=== PATIENT | female | born 1960 | race Caucasian/White ===

== ENCOUNTER 2017-04-03 17:56 | Inpatient (IN) ==
--- NOTE | 2017-04-03 18:08 | Emergency Department Note ---
Disposition Clinical Impression: Acute exacerbation of chronic obstructive airways disease Disposition: Admitted As Inpatient Condition: Fair SOB HPI - General Chief Complaint: ED Shortness of Breath/Dyspnea Stated Complaint: Shortness of breath Time Seen by Provider: 04/03/17 18:06 Source: patient, EMS Mode of arrival: EMS Limitations: other Nursing Notes Reviewed: Yes Vital Signs Reviewed: Yes - History of Present Illness Patient presents to the ED via EMS complaining of shortness of breath, cough, nausea, vomiting and weakness. States she has been feeling bad for 1 week. She has a chronic cough due to her COPD that is worsened recently and is now productive of green sputum in the past 2 days. She denies any abdominal pain but has had nausea with several episodes of dry heaves today. She also reports several episodes of diarrhea over the past week. Denies any blood in her vomit or stools. Denies any chest pain She reports subjective fever and chills as well as body aches. She has had rhinorrhea but denies any nasal congestion, sneezing or sore throat. She wears home O2 at 2 L at night for the past several years from her COPD. She has not recently been on antibiotics or steroids but does use inhalers at home. She normally smokes a few packs per day but states she has not smoked in the past week since becoming ill. In addition to her prescription medicine she is taking some [id number] Tussin without relief. Denies any recent travel or sick contacts. - Related Data Home Medications Medication Instructions Recorded Confirmed CeleXA 12/27/14 12/27/14 Daliresp 12/27/14 12/27/14 Flonase 12/27/14 12/27/14 Gabapentin 12/27/14 12/27/14 Loratadine 12/27/14 12/27/14 Proair Hfa 12/27/14 12/27/14 Singulair 12/27/14 12/27/14 Symbicort 12/27/14 12/27/14 Verapamil 12/27/14 12/27/14 Previous Rx's Medication Instructions Recorded Levofloxacin [Levaquin] 750 mg PO DAILY #7 tablet 12/27/14 Promethazine/Dextromethorphan 5 ml PO Q4H #480 syrup 12/27/14 [Promethazine-Dm Syrup] predniSONE [PredniSONE] 40 mg PO DAILY 5 Days tablet 12/27/14 Allergies Allergy/AdvReac Type Severity Reaction Status Date / Time Penicillins [PCN] Allergy Hives Verified 12/27/14 12:14 tiotropium Allergy Swelling Verified 12/27/14 12:14 [From Spiriva with of HandiHaler] Lip/Tongue/Throat bupropion [From Wellbutrin] AdvReac Fever Verified 12/27/14 12:14 Varenicline [From Chantix] AdvReac Fever Verified 12/27/14 12:14 Constitutional: Reports: fever, chills. Denies: weakness, weight change Eyes: Denies: eye pain, eye discharge, vision change ENT ED: Denies: ear pain, throat pain, dental pain, hearing loss, epistaxis, congestion, dysphagia Cardiovascular: Denies: chest pain, palpitations, dyspnea on exertion, edema, syncope Respiratory: Reports: cough, dyspnea, sputum production. Denies: wheezes, hemoptysis, stridor Gastrointestinal: Reports: nausea, vomiting, diarrhea. Denies: abdominal pain, constipation, hematemesis, melena, hematochezia Genitourinary: Denies: dysuria, frequency, hematuria, discharge Musculoskeletal: Reports: myalgia (generalized body aches). Denies: back pain, neck pain, arthralgia Integumentary: Denies: rash, abrasion, lesions Neurological: Denies: headache, weakness, numbness, paresthesias, confusion, abnormal gait, vertigo Psychiatric: Denies: anxiety, depression, suicidal thoughts, homicidal thoughts , auditory hallucinations, visual hallucinations Endocrine: Denies: fatigue Hematological/Lymphatic: Denies: easy bleeding, easy bruising Allergic/Immunologic: Denies: facial swelling, urticaria Past Medical History - Past Medical History Medical history: Reports: COPD, hyperlipidemia, hypertension Surgical history: Reports: appendectomy Psychiatric history: Reports: anxiety, depression, panic disorder WOOD PLANER history: Reports: no WOOD PLANER history, bilateral tubal ligation - Social History Smoking Status: Current every day smoker Smokeless Tobacco Status: No Alcohol use: Reports: none Drug use: Reports: none Physical Exam - General Limitations: other General appearance: alert, in no apparent distress, other (Looks much older than stated age) - Head Head exam: atraumatic, normocephalic, normal inspection - Eye Eye exam: Present: normal appearance, PERRL, EOMI - ENT ENT exam: normal exam, normal oropharynx, mucous membranes dry, TM's normal bilaterally, normal external ear exam - Expanded ENT Exam Nose exam: negative: rhinorrhea, sinus tenderness Mouth exam: Present: normal external inspection Throat exam: Present: normal inspection. Absent: tonsillar erythema, tonsillomegaly - Neck Neck exam: Present: normal inspection, full ROM, trachea midline. Absent: lymphadenopathy - Chest Chest inspection: Present: normal inspection, symmetric chest wall rise - Respiratory Respiratory exam: Absent: respiratory distress, accessory muscle use - Expanded Respiratory Exam Location: wheezes: Left, Right, Upper, Lower (scattered, greater on R) - Cardiovascular Cardiovascular exam: Present: normal rhythm, tachycardia, normal heart sounds - Abdominal Exam Abdominal exam: Present: soft, Non-Tender, normal bowel sounds. Absent: tenderness, distention, guarding, rebound, rigidity - Extremities Exam Extremities exam: Present: normal inspection, full ROM. Absent: tenderness, pedal edema - Back Exam Back exam: Present: normal inspection, full ROM. Absent: tenderness - Neurological Exam Neurological exam: Present: alert, oriented X3 - Psychiatric Psychiatric exam: Present: normal affect, normal mood - Skin Skin exam: Present: warm, dry, intact, normal color Course Course Narrative: Patient presents to the ED with 1 week of flulike symptoms including fever, chills, myalgias, nausea and vomiting as well as shortness of breath or productive cough. She has a history of COPD concerning for COPD exacerbation with possibility of pneumonia in addition to the possibility of influenza. She has scattered wheezing on exam and is mildly tachycardic but is not in any acute distress. She is afebrile. She will be given a DuoNeb and steroids. Will obtain chest x-ray and lab work including flu swab for further evaluation. - Reevaluation(s) Reevaluation #1: Flu test is negative. Chest x-ray shows emphysema with some overlying patchy airspace disease concerning for pneumonia. Laboratory studies show leukocytosis with a left shift which may be due to pneumonia versus her GI process causing diarrhea. Lactic acid however is normal. Patient states she has been wearing oxygen continuously for the past week while she has been feeling ill. Patient has been satting in the mid 90s on 3 L since arrival. Will check a room air saturation and walking pulse ox is I suspect she will likely desaturate. Patient reports feeling better after neb treatment and wheezing has diminished but is still present on repeat exam. Will given additional nebulizer treatment and start antibiotics for the possible pneumonia. Discussed with patient my recommendation for admission for continued antibiotics and treatment and she is agreeable. Time: 19:41 Reevaluation #2: Patient desatted to 86% on room air just changing clothes in the bed. She was placed back on oxygen. Time: 19:54 Reevaluation #3: Spoke to the hospitalist pharmacy operations coordinator, Dr. Najera, who has agreed to admit the patient. We will draw blood cultures before starting antibiotics. We will give Imodium for her diarrhea. Patient and family updated. Time: 20:06 Vital Signs Temperature 97.6 F 04/03/17 17:57 Pulse Rate 109 04/03/17 17:57 Respiratory Rate 16 04/03/17 17:57 Blood Pressure 102/85 04/03/17 17:57 O2 Sat by Pulse Oximetry 92 04/03/17 17:57 Temperature 97.6 F 04/03/17 17:57 Pulse Rate 101 04/03/17 20:25 Respiratory Rate 18 04/03/17 20:25 Blood Pressure 121/85 04/03/17 20:25 O2 Sat by Pulse Oximetry 94 04/03/17 20:25 Oxygen Delivery Oxygen Delivery Nasal Cannula Shortness of Breath/Dyspnea - Differential Diagnosis Likely: acute exacerbation of chronic obstructive airways disease, pneumonia - Medical Records Medical records reviewed: Yes I reviewed the patient's medical records. - Lab Data Lab results reviewed: Yes I reviewed the patient's lab results. Result diagrams: 04/03/17 18:35 04/03/17 18:35 Lab Results 04/03/17 04/03/17 04/03/17 Range/Units 18:35 18:35 18:35 WBC 17.4 H (4.3-11.1) K/mcL RBC 4.85 (3.82-4.97) M/mcL Hgb 15.0 (11.5-15.4) g/dL Hct 46.3 H (35.3-44.9) % MCV 95.5 (83.0-100.0) fL MCH 30.9 (28.0-33.3) pg MCHC 32.4 (31.6-35.5) g/dL RDW 12.7 (11.5-14.5) % Plt Count 375 (140-400) K/mcL MPV 9.2 L (9.4-12.4) fL Immature Gran % 4.1 H (0-4) % Seg Neutrophils % 73.4 % Lymphocytes % 12.1 % Monocytes % 9.3 % Eosinophils % 0.4 % Basophils % 0.7 % Neutrophils # 12.8 H (1.6-8.9) K/mcL Lymphocytes # 2.1 (0.6-4.6) K/mcL Monocytes # 1.6 H (0.0-1.3) K/mcL Eosinophils # 0.1 (0.0-0.6) K/mcL Basophils # 0.1 (0.0-0.2) K/mcL Toxic Granulation Present A (Not Present) Dohle Bodies Present A (Not Present) Platelet Estimate Normal (Normal) Polychromasia 1+ A (Not Present) Sodium 142 (136-145) mEq/L Potassium 3.8 (3.5-4.5) mEq/L Chloride 91 L (98-109) mEq/L Carbon Dioxide 38 H (19-29) mEq/L BUN 21 H (7-20) mg/dL Creatinine 0.68 (0.57-1.11) mg/dL Est GFR ( Amer) > 60 (> 60) Est GFR (Non-Af Amer) > 60 (> 60) BUN/Creatinine Ratio 31 H (6-26) Glucose 101 H (70-99) mg/dL Calculated Osmolality 297 (280-300) Lactic Acid 1.1 (0.5-2.2) mmol/L Calcium 9.3 (8.6-10.8) mg/dL 04/03/17 Range/Units 20:05 WBC (4.3-11.1) K/mcL RBC (3.82-4.97) M/mcL Hgb (11.5-15.4) g/dL Hct (35.3-44.9) % MCV (83.0-100.0) fL MCH (28.0-33.3) pg MCHC (31.6-35.5) g/dL RDW (11.5-14.5) % Plt Count (140-400) K/mcL MPV (9.4-12.4) fL Immature Gran % (0-4) % Seg Neutrophils % % Lymphocytes % % Monocytes % % Eosinophils % % Basophils % % Neutrophils # (1.6-8.9) K/mcL Lymphocytes # (0.6-4.6) K/mcL Monocytes # (0.0-1.3) K/mcL Eosinophils # (0.0-0.6) K/mcL Basophils # (0.0-0.2) K/mcL Toxic Granulation (Not Present) Dohle Bodies (Not Present) Platelet Estimate (Normal) Polychromasia (Not Present) Sodium (136-145) mEq/L Potassium (3.5-4.5) mEq/L Chloride (98-109) mEq/L Carbon Dioxide (19-29) mEq/L BUN (7-20) mg/dL Creatinine (0.57-1.11) mg/dL Est GFR ( Amer) (> 60) Est GFR (Non-Af Amer) (> 60) BUN/Creatinine Ratio (6-26) Glucose (70-99) mg/dL Calculated Osmolality (280-300) Lactic Acid 1.1 (0.5-2.2) mmol/L Calcium (8.6-10.8) mg/dL - Radiology Data Radiology results reviewed: Yes I reviewed the patient's radiology results.
[2017-04-03] MEDS ORDERED: methylPREDNISolone 125 MG/2 ML VIAL IVP ONE (18:21)
[2017-04-03] MEDS ORDERED: 0.9 % Sodium Chloride 1,000 ML IVC ONE (18:21)
[2017-04-03] MEDS ORDERED: Ipratropium/Albuterol Neb 3 ML IH ONE ×2 (18:21→19:38)
[2017-04-03 18:41] LABS: Basophils # 0.1 K/mcL (0.0-0.2); Basophils % 0.7 %; Eosinophils # 0.1 K/mcL (0.0-0.6); Eosinophils % 0.4 %; Hematocrit 46.3 % (35.3-44.9); Immature Granulocytes % 4.1 % (0-4); Lymphocytes # 2.1 K/mcL (0.6-4.6); Lymphocytes % 12.1 %; Mean Corpuscular HGB Conc 32.4 g/dL (31.6-35.5); Mean Corpuscular Hemoglobin 30.9 pg (28.0-33.3); Mean Corpuscular Volume 95.5 fL (83.0-100.0); Mean Platelet Volume 9.2 fL (9.4-12.4); Monocytes # 1.6 K/mcL (0.0-1.3); Monocytes % 9.3 %; Neutrophils # 12.8 K/mcL (1.6-8.9); Platelet Count 375 K/mcL (140-400); Red Blood Count 4.85 M/mcL (3.82-4.97); Red Cell Distribution Width 12.7 % (11.5-14.5); Segmented Neutrophils % 73.4 %
[2017-04-03 18:58] LABS: BUN/Creatinine Ratio 31 (6-26); Blood Urea Nitrogen 21 mg/dL (7-20); Calcium 9.3 mg/dL (8.6-10.8); Carbon Dioxide 38 mEq/L (19-29); Chloride 91 mEq/L (98-109); Glucose 101 mg/dL (70-99); Osmolality,Calculated 297 (280-300); Potassium 3.8 mEq/L (3.5-4.5); Sodium 142 mEq/L (136-145); eGFR For African Americans > 60 (> 60); eGFR For Non-African Americans > 60 (> 60)
[2017-04-03 19:12] LABS: Dohle Bodies Present (Not Present); Toxic Granulation Present (Not Present)
[2017-04-03 19:19] LABS: Platelet Estimate Normal (Normal); Polychromasia 1+ (Not Present)
[2017-04-03] MEDS ORDERED: Levofloxacin 750 MG/150 ML 750 MG/150 ML BAG IVPB ONE (19:37)
[2017-04-03] MEDS ORDERED: Naloxone 0.4 MG/ML INJ IVP PRN ×2 (20:07→21:20)
[2017-04-03] MEDS ORDERED: 0.9 % Sodium Chloride 1,000 ML IVC SCH (20:15)
[2017-04-04] MEDS: Ipratropium/Albuterol Neb 3 ML IH SCH ×4 (00:01→14:01)
[2017-04-04] MEDS: Budesonide/Formoterol 160/4.5 MDI IH SCH ×3 (00:01→21:34)
[2017-04-04] MEDS: 0.9 % Sodium Chloride 1,000 ML IVC SCH ×2 (04:31→12:22)
[2017-04-04] MEDS: Gabapentin 300 MG CAPSULE PO SCH ×3 (10:25→21:12)
[2017-04-04] MEDS: Verapamil ER (24 HR) 240 MG TABLET.ER PO SCH (10:26)
--- NOTE | 2017-04-04 12:12 | Internal Med History&Physical ---
Date of Encounter: 04/04/17 Time of Encounter: 11:30 Assessment and Plan (1) Pneumonia Current visit: Yes Status: Acute She has been started on Levaquin. Will add lactobacillus and order chest CT to further evaluate. Qualifiers: Pneumonia type: due to unspecified organism Laterality: bilateral Lung location: unspecified part of lung Qualified Code(s): J18.9 - Pneumonia, unspecified organism (2) Acute exacerbation of chronic obstructive airways disease Current visit: Yes Status: Acute Continue Symbicort and Singulair with prn albuterol nebs. (3) Weight loss Current visit: Yes Status: Acute TSH was normal in 2016. Will recheck in a.m. and order CT of chest abdomen and pelvis. (4) Hypertension Current visit: Yes Status: Chronic Continue verapamil Qualifiers: Hypertension type: essential hypertension Qualified Code(s): I10 - Essential (primary) hypertension Internal Medicine - H&P: HPI Chief complaint: Dyspnea and diarrhea Admitted From: Emergency Dept Plans for Post Hospital Care: Home History of present illness: Ms. Kang is a 56 year old female who came to emergency room stating she had one week history of cough with increased dyspnea and diarrhea. She reports having fevers and chills at home. She denies any blood in the diarrhea. Her family reported she appeared delirious so called the squad. She was evaluated emergency room and found to have bilateral pneumonia on chest x-ray. She was admitted to [facility] floor for ongoing care needs. Her respiratory history is significant for having smoked since age 14 up to 3 packs per day. She states she has not smoked in a week. She had PFTs approximately 2009 and was told she had COPD/emphysema. She states she was diagnosed with alpha-1 antitrypsin deficiency. She wears oxygen at bedtime and when necessary during the daytime. She has not been evaluated for EDISON. Past Med Surg Social Fam HX - Past Medical History Medical history: COPD, fibromyalgia, hyperlipidemia, hypertension Psychiatric history: anxiety, depression, panic disorder - Past Surgical History Surgical History: appendectomy - Social History Smoking Status: Current every day smoker Smokeless Tobacco Status: No Alcohol use: none Drug use: none - Family History Mother Living Status: Age at : 40 Cause of : complications to diabetes Hx Family Endocrine Disorder: Yes (diabetes) Internal Medicine - H&P: Meds Aclidinium [place] [Tudorza Pressair] 400 mcg IH BID 04/04/17 [History] Albuterol Sulfate [Proair Respiclick] 90 mcg IH Q4HR PRN 04/04/17 [History] Albuterol Sulfate [Ventolin Hfa] 18 gm IH Q4HR PRN 04/04/17 [History] Alprazolam [Xanax] 0.5 mg PO TID PRN 04/04/17 [History] Budesonide/Formoterol 160/4.5 [Symbicort 160/4.5] 2 puff IH BIDR 04/04/17 [ History] Citalopram Hydrobromide [Citalopram HBr] 40 mg PO QDPC 04/04/17 [History] Gabapentin [Neurontin] 600 mg PO TID 04/04/17 [History] Montelukast [Singulair] 10 mg PO QDPC 04/04/17 [History] Roflumilast [Daliresp] 500 mcg PO QDPC 04/04/17 [History] Verapamil ER (24 HR) [Calan SR] 240 mg PO DAILY 04/04/17 [History] 3 Allergy/AdvReac Type Severity Reaction Status Date / Time Penicillins [PCN] Allergy Hives Verified 12/27/14 12:14 tiotropium Allergy Swelling Verified 12/27/14 12:14 [From Spiriva with of HandiHaler] Lip/Tongue/Throat bupropion [From Wellbutrin] AdvReac Fever Verified 12/27/14 12:14 Varenicline [From Chantix] AdvReac Fever Verified 12/27/14 12:14 All Systems PM: A 10-system review of systems was performed and is negative for pertinent findings except as documented above in the HPI. Review of systems: Gen.: Her weight has decreased from 72.575 kg June 2014 hospitalization to 61.235 kg now. Cardiovascular: She has history of hypertension but denies RI heart failure angina DVT or pulmonary embolus. She thinks she had an EST approximately 2004 which was negative. Respiratory: As per history of present illness GI: She denies disorders with her liver gallbladder or exocrine pancreas : No history of hematuria dysuria or kidney stones Neurologic: No history of large distribution strokes or seizures Endocrine: She has hyperlipidemia but no known diabetes or thyroid disease Hematology/oncology: She denies blood disorders cancers or anemia Psychiatric: She has anxiety and depression but denies other mental health issues Muscle skeletal: She denies arthritis or gout or osteoporosis. She has been diagnosed with fibromyalgia. - Constitutional Vitals: Temp Pulse Resp BP Pulse Ox 98.4 F 97 18 122/73 94 04/04/17 06:35 04/04/17 10:00 04/04/17 10:03 04/04/17 06:35 04/04/17 10:03 Exam: Gen.: She is a well-developed well-nourished female lying in bed who appears in no acute distress HEENT: Head is atraumatic and normocephalic. Eyes: EOMI. There is no scleral icterus. Mouth: Mucosa is moist. Neck: Supple and nontender. There is no thyromegaly or adenopathy noted. Heart: Regular without murmurs gallops or ectopics Lungs: She has prolonged expiratory phase with mild wheezing. No inspiratory crackles are heard. Abdomen: Bowel sounds are present but diminished. There is mild tenderness to palpation in the abdomen. No masses or guarding are noted. Extremities: There is no cyanosis edema or clubbing noted. Dorsalis pedis and posterior tibial pulses are trace to 1+ palpable bilaterally. Neurologic: Mental status: She is talkative and a good historian. Cranial nerves: Smile is symmetric. Forehead wrinkles bilaterally. Tongue protrudes midline. EOMI. Motor: There is no pronator drift. Cerebellar: Finger to nose is intact bilaterally. Skin: Warm and dry Internal Med - H&P Results - Labs CBC & Chem 7: 04/03/17 18:35 04/03/17 18:35 - VTE Reasons for not Prescribing Prophylaxis: Treatment not Indicated - Low risk for VTE
[2017-04-04] MEDS ORDERED: Simethicone 80 MG TAB.CHEW PO PRN (12:33)
[2017-04-04] MEDS: predniSONE 20 MG TABLET PO SCH ×2 (12:54→21:12)
[2017-04-04] MEDS: 0.45 % Sodium Chloride w/KCl 20 MEQ/1,000 ML MLS IVC SCH (12:59)
[2017-04-04] MEDS ORDERED: Albuterol 2.5 MG/3 ML NEBULIZER IH PRN (14:00)
[2017-04-04] MEDS: ALPRAZolam 0.5 MG TABLET PO PRN ×2 (14:28→21:12)
[2017-04-04] MEDS: Lactobacillus 1 EACH CAP.SPRINK PO SCH (21:12)
[2017-04-04] MEDS: MDI IH SCH (21:13)
[2017-04-04] MEDS: TUDORZA 400 MCG IH SCH (21:13)
[2017-04-05] MEDS: 0.45 % Sodium Chloride w/KCl 20 MEQ/1,000 ML MLS IVC SCH (03:41)
[2017-04-05 06:17] LABS: Basophils # 0.1 K/mcL (0.0-0.2); Basophils % 0.7 %; Hematocrit 43.8 % (35.3-44.9); Hemoglobin 14.1 g/dL (11.5-15.4); Immature Granulocytes % 5.8 % (0-4); Lymphocytes # 1.3 K/mcL (0.6-4.6); Lymphocytes % 6.2 %; Mean Corpuscular HGB Conc 32.2 g/dL (31.6-35.5); Mean Corpuscular Hemoglobin 30.6 pg (28.0-33.3); Mean Platelet Volume 9.7 fL (9.4-12.4); Monocytes % 4.1 %; Neutrophils # 17.1 K/mcL (1.6-8.9); Platelet Count 300 K/mcL (140-400); Red Blood Count 4.61 M/mcL (3.82-4.97); Red Cell Distribution Width 12.8 % (11.5-14.5); Segmented Neutrophils % 83.2 %
[2017-04-05 06:18] LABS: Monocytes # 0.8 K/mcL (0.0-1.3)
[2017-04-05 07:04] LABS: Alanine Aminotransferase 13 Units/L (0-55); Albumin 2.4 g/dL (3.5-5.0); Albumin/Globulin Ratio 0.6 (1.1-2.2); Alkaline Phosphatase 101 Units/L (38-126); Aspartate Amino Transferase 14 Units/L (5-34); BUN/Creatinine Ratio 14 (6-26); Bilirubin,Total 0.2 mg/dL (0.2-1.2); Blood Urea Nitrogen 9 mg/dL (7-20); Calcium 9.1 mg/dL (8.6-10.8); Carbon Dioxide 31 mEq/L (19-29); Chloride 100 mEq/L (98-109); Globulin 4.1 g/dL (2.4-3.5); Glucose 133 mg/dL (70-99); Magnesium 2.3 mg/dL (1.6-2.6); Osmolality,Calculated 291 (280-300); Potassium 4.4 mEq/L (3.5-4.5); Sodium 140 mEq/L (136-145); Total Protein 6.5 g/dL (6.0-8.3); eGFR For African Americans > 60 (> 60); eGFR For Non-African Americans > 60 (> 60)
[2017-04-05 07:07] LABS: Platelet Estimate Normal (Normal)
[2017-04-05 07:24] LABS: Thyroid Stimulating Hormone 0.922 mcIU/mL (0.350-4.840)
[2017-04-05] MEDS: Lactobacillus 1 EACH CAP.SPRINK PO SCH ×2 (08:31→20:51)
[2017-04-05] MEDS: Gabapentin 300 MG CAPSULE PO SCH ×3 (08:31→20:51)
[2017-04-05] MEDS: predniSONE 20 MG TABLET PO SCH (08:31)
[2017-04-05] MEDS: MDI IH SCH ×2 (08:32→22:42)
[2017-04-05] MEDS: DALIRESP 500MCG PO SCH (08:32)
[2017-04-05] MEDS: TUDORZA 400 MCG IH SCH ×2 (08:32→22:42)
[2017-04-05] MEDS: Verapamil ER (24 HR) 240 MG TABLET.ER PO SCH (08:34)
[2017-04-05] MEDS: Budesonide/Formoterol 160/4.5 MDI IH SCH ×2 (11:01→22:36)
--- NOTE | 2017-04-05 11:24 | Internal Med Progress Note ---
Date of Encounter: 04/05/17 Time of Encounter: 11:15 - Assessment and plan (1) Pneumonia Current Visit: Yes Status: Acute Assessment and plan: April 05. Continue Levaquin and lactobacillus. Chest CT showed bilateral pneumonia without other worrisome pathology. Will discontinue prednisone since no bronchospasm remains. Anticipate discharge home tomorrow if stable. Qualifiers: Pneumonia type: due to unspecified organism Laterality: bilateral Lung location: unspecified part of lung Qualified Code(s): J18.9 - Pneumonia, unspecified organism (2) Acute exacerbation of chronic obstructive airways disease Current Visit: Yes Status: Acute Assessment and plan: April 05. Continue Symbicort and Singulair with nebs (3) Weight loss Current Visit: Yes Status: Acute Assessment and plan: April 05. TSH is normal. CT of chest abdomen pelvis showed no worrisome pathology. (4) Hypertension Current Visit: Yes Status: Chronic Assessment and plan: April 05. Continue verapamil Qualifiers: Hypertension type: essential hypertension Qualified Code(s): I10 - Essential (primary) hypertension - Subjective Interval history: April 05. She has no new complaints and feels better. - Constitutional Vitals: Temp Pulse Resp BP Pulse Ox 98.5 F 77 17 120/74 97 04/05/17 09:00 04/05/17 09:00 04/05/17 11:04 04/05/17 09:00 04/05/17 11:04 Exam: She is resting comfortably in bed and appears in no severe distress. Her lungs show no wheezes or crackles. Her affect is bright and cheerful. I reviewed her medications and lab results. Internal Medicine: Result - Labs CBC & Chem 7: 04/05/17 05:05 04/05/17 05:05 Labs: Short CBC 04/05/17 Range/Units 05:05 WBC 20.5 H (4.3-11.1) K/mcL Hgb 14.1 (11.5-15.4) g/dL Hct 43.8 (35.3-44.9) % Plt Count 300 (140-400) K/mcL Neutrophils # 17.1 H (1.6-8.9) K/mcL BMP 04/05/17 05:05 Sodium 140 Potassium 4.4 Chloride 100 Carbon Dioxide 31 H BUN 9 D Creatinine 0.66 Glucose 133 H Calcium 9.1 Liver Function 04/05/17 Range/Units 05:05 Total Bilirubin 0.2 (0.2-1.2) mg/dL AST 14 (5-34) Units/L ALT 13 (0-55) Units/L Alkaline Phosphatase 101 (38-126) Units/L Albumin 2.4 L (3.5-5.0) g/dL - VTE Reasons for not Prescribing Prophylaxis: Treatment not Indicated - Low risk for VTE Consult Discharge Plan - Plan
[2017-04-05] MEDS: ALPRAZolam 0.5 MG TABLET PO PRN (20:51)
[2017-04-06 06:55] VITALS: BP 130/79
[2017-04-06] MEDS: Gabapentin 300 MG CAPSULE PO SCH (07:55)
[2017-04-06] MEDS: Lactobacillus 1 EACH CAP.SPRINK PO SCH (07:55)
[2017-04-06] MEDS: Verapamil ER (24 HR) 240 MG TABLET.ER PO SCH (08:04)
[2017-04-06 08:11] LABS: Hematocrit 47.4 % (35.3-44.9); Mean Corpuscular HGB Conc 31.6 g/dL (31.6-35.5); Mean Corpuscular Hemoglobin 30.6 pg (28.0-33.3); Mean Corpuscular Volume 96.7 fL (83.0-100.0); Mean Platelet Volume 9.8 fL (9.4-12.4); Platelet Count 215 K/mcL (140-400); Red Cell Distribution Width 12.6 % (11.5-14.5)
[2017-04-06 09:26] LABS: Lymphocytes # 4.7 K/mcL (0.6-4.6); Neutrophils # 11.7 K/mcL (1.6-8.9)
[2017-04-06 09:27] LABS: Platelet Estimate Normal (Normal)
[2017-04-06] MEDS: DALIRESP 500MCG PO SCH (09:41)
--- NOTE | 2017-04-06 10:18 | Discharge Summary ---
Date of Encounter: 04/06/17 Time of Encounter: 10:10 - Discharge Diagnosis (1) Pneumonia Priority: Primary Status: Acute Qualifiers: Pneumonia type: due to unspecified organism Laterality: bilateral Lung location: unspecified part of lung Qualified Code(s): J18.9 - Pneumonia, unspecified organism (2) Acute exacerbation of chronic obstructive airways disease Priority: Secondary Status: Acute (3) Weight loss Priority: Secondary Status: Acute (4) Hypertension Priority: Secondary Status: Chronic Qualifiers: Hypertension type: essential hypertension Qualified Code(s): I10 - Essential (primary) hypertension - Discharge Medications Prescriptions: Lactobacillus [Culturelle] 1 each PO BID #10 cap.sprink levoFLOXacin [Levaquin] 500 mg PO DAILY #5 tablet Home Medications: Aclidinium [place] [Tudorza Pressair] 400 mcg IH BID 04/04/17 [History] Albuterol Sulfate [Proair Respiclick] 90 mcg IH Q4HR PRN 04/04/17 [History] Albuterol Sulfate [Ventolin Hfa] 18 gm IH Q4HR PRN 04/04/17 [History] Alprazolam [Xanax] 0.5 mg PO TID PRN 04/04/17 [History] Budesonide/Formoterol 160/4.5 [Symbicort 160/4.5] 2 puff IH BIDR 04/04/17 [ History] Citalopram Hydrobromide [Citalopram HBr] 40 mg PO QDPC 04/04/17 [History] Gabapentin [Neurontin] 600 mg PO TID 04/04/17 [History] Montelukast [Singulair] 10 mg PO QDPC 04/04/17 [History] Roflumilast [Daliresp] 500 mcg PO QDPC 04/04/17 [History] Verapamil ER (24 HR) [Calan SR] 240 mg PO DAILY 04/04/17 [History] Lactobacillus [Culturelle] 1 each PO BID #10 cap.sprink 04/06/17 [Rx] levoFLOXacin [Levaquin] 500 mg PO DAILY #5 tablet 04/06/17 [Rx] Allergies/Adverse Reactions: 3 Allergy/AdvReac Type Severity Reaction Status Date / Time Penicillins [PCN] Allergy Hives Verified 12/27/14 12:14 tiotropium Allergy Swelling Verified 12/27/14 12:14 [From Spiriva with of HandiHaler] Lip/Tongue/Throat bupropion [From Wellbutrin] AdvReac Fever Verified 12/27/14 12:14 Varenicline [From Chantix] AdvReac Fever Verified 12/27/14 12:14 Date of admission: 04/04/17 12:35 Primary care physician: Xiao Mireles - Patient Status Disposition: Home, Self-Care Condition: Fair Overall status at discharge: patient is progressing back to baseline - Discharge Instructions Follow Up With: Xiao Mireles MD [Primary Care Provider] - 1 week Forms: ED Satisfaction Letter - Diet and Activity Activity: resume usual activities as tolerated, wear oxygen at all times Diet: advance to your usual diet Hospital course: Ms. Kang is a 56 year old female who came to emergency room stating she had one week history of cough with increased dyspnea and diarrhea. She reports having fevers and chills at home. She denies any blood in the diarrhea. Her family reported she appeared delirious so called the squad. She was evaluated emergency room and found to have bilateral pneumonia on chest x-ray. She was admitted to [facility] floor for ongoing care needs. Initial orders were written by the emergency room physician. I saw her on April 04 and performed the history and physical. She was started on Levaquin empirically for pneumonia. Lactobacillus was given. I ordered CT of chest abdomen and pelvis to further evaluate her pneumonia and reported weight loss. The chest CT showed multifocal pneumonia throughout the right lung and in the left upper lobe. There was a right upper lobe 18 x 8 mm linear area of consolidation superimposed with repeat CT of chest recommended in 3-[address] Mireles can order this. There were findings of emphysema. I encouraged her to become a nonsmoker. She had clinical improvement on the Levaquin and will continue this for 5 additional days at discharge. On April 06 she felt stable for discharge home. The WBC was elevated but improved at 19.5 K with 60% segs on April 06. Her PCP can monitor labs as needed. She will follow with Dr. Mireles within 1 week. - Time Spent with Patient Total time spent providing and/or coordinating discharge services: - Constitutional Vitals: Temp Pulse Resp BP Pulse Ox 98.5 F 81 18 130/79 97 01/18/18 06:52 04/06/17 06:52 04/06/17 06:52 04/06/17 06:52 04/06/17 06:52 - VTE Reasons for not Prescribing Prophylaxis: Treatment not Indicated - Low risk for VTE
[2017-04-06] MEDS: Budesonide/Formoterol 160/4.5 MDI IH SCH (10:49)
[2017-04-06] MEDS ORDERED: FLUARIX QUAD 2017-18 36MOS UP/PF 0.5 ML SYRINGE IM ONE (10:57)
[2017-04-06] MEDS: MDI IH SCH (11:11)
[2017-04-06] MEDS: TUDORZA 400 MCG IH SCH (11:11)
== END 2017-04-06 12:20 | disposition home or self-care (01) | DRG 195 ==
LOC: INPPIK 17:56 → EMEROOPIK 17:56 → INPPIK 21:20
PROVIDERS: ADMIT Internal Medicine; ATTEND Internal Medicine